=== PATIENT | female | born 2000 | race Caucasian/White ===

== ENCOUNTER → 2023-08-29 | Outpatient (CLI) | payer BC, SELFPAY ==
[2023-09-02 10:09] LABS: Chlamydia By Nucleic Acid AMP Negative (Negative); Gonococcus By Nucleic Acid AMP Negative (Negative)
== END | disposition home or self-care (01) ==
LOC: LABSPEC 12:16
PROVIDERS: Referring Provider Advanced Practice Midwife; Visit Provider Advanced Practice Midwife
DX: Z34.90 Encounter for supervision of normal pregnancy, unspecified, unspecified trimester (principal); Z3A.00 Weeks of gestation of pregnancy not specified
CPT/HCPCS: 87086; 87491; 87591

== ENCOUNTER → 2023-09-10 | Outpatient (CLI) | payer BC, SELFPAY ==
[2023-09-10 11:19] LABS: Absolute Lymphocyte Count 1.36 X10^3/uL (0.83-4.51); Absolute Neutrophil Count 5.8 X10^3/uL (2.0-7.7); Basophil# 0.03 X10^3/uL; Basophil% 0.4 % (0-1); Eosinophil# 0.15 X10^3/uL; Eosinophils% 1.9 % (0-5); Hematocrit 37.1 % (37-47); Hemoglobin 12.9 g/dL (12.0-15.0); Lymphocyte # 1.36 X10^3/ul (0.83-4.51); Lymphocyte % 17.2 % (19-41); Mean Corp Hgb Conc 34.8 g/dL (32-36); Mean Corpuscular Hgb 31.8 pg (27.0-32.0); Mean Corpuscular Volume 91.4 fL (81-99); Mean Platelet Vol. 10.4 fl (6.2-12.0); Monocyte# 0.54 X10^3/uL; Monocyte% 6.8 % (0-10); NRBC Flagged by Analyzer 0 % (0-5); Neutrophil # 5.81 X10^3/uL (2.7-7.7); Neutrophil % 73.3 % (47-70); Platelet Count 205 K/mm3 (150-450); RBC Distribution Width CV 12.7 % (11.6-14.6); Red Blood Count 4.06 M/mm3 (4.2-5.4); White Blood Count 7.9 K/mm3 (4.4-11.0)
[2023-09-10 12:34] LABS: HIV - WCH Non-Reactive (Nonreactive); Hepatitis B Surface Antigen Non-Reactive (Nonreactive); Hepatitis C Antibody Non-Reactive (Nonreactive); Rubella IgG Reactive (Nonreactive); Syphilis Antibodies Non-reactive
== END | disposition home or self-care (01) ==
LOC: PAVLAB 11:07
PROVIDERS: Referring Provider Advanced Practice Midwife; Visit Provider Advanced Practice Midwife
DX: Z34.90 Encounter for supervision of normal pregnancy, unspecified, unspecified trimester (principal); Z3A.00 Weeks of gestation of pregnancy not specified
CPT/HCPCS: 36415; 85025; 86703; 86762; 86780; 86803; 86850; 86900; 86901; 87340

== ENCOUNTER → 2024-01-16 | Outpatient (CLI) | payer BC, SELFPAY ==
[2024-01-16 13:33] LABS: Absolute Lymphocyte Count 1.45 X10^3/uL (0.83-4.51); Absolute Neutrophil Count 8.6 X10^3/uL (2.0-7.7); Basophil# 0.04 X10^3/uL; Basophil% 0.4 % (0-1); Eosinophil# 0.26 X10^3/uL; Eosinophils% 2.3 % (0-5); Hemoglobin 11.1 g/dL (12.0-15.0); Lymphocyte # 1.45 X10^3/ul (0.83-4.51); Mean Corp Hgb Conc 33.6 g/dL (32-36); Mean Corpuscular Hgb 31.6 pg (27.0-32.0); Monocyte% 6.3 % (0-10); NRBC Flagged by Analyzer 0 % (0-5); Neutrophil # 8.63 X10^3/uL (2.7-7.7); Neutrophil % 77.1 % (47-70); Platelet Count 218 K/mm3 (150-450); RBC Distribution Width CV 13.1 % (11.6-14.6); RBC Distribution Width SD 44.6 fl (35.1-43.9); Red Blood Count 3.51 M/mm3 (4.2-5.4); White Blood Count 11.2 K/mm3 (4.4-11.0)
[2024-01-16 13:50] LABS: Glucose Challenge Gest 1H 50g 76 mg/dL (70-140)
== END | disposition home or self-care (01) ==
LOC: LAB 13:09
PROVIDERS: Referring Provider Advanced Practice Midwife; Visit Provider Advanced Practice Midwife
DX: Z34.90 Encounter for supervision of normal pregnancy, unspecified, unspecified trimester (principal); Z3A.00 Weeks of gestation of pregnancy not specified
CPT/HCPCS: 36415; 82950; 85025

== ENCOUNTER → 2024-03-11 | Outpatient (CLI) | payer BC, SELFPAY | END | disposition home or self-care (01) | LOC: LABSPEC 12:00 | PROVIDERS: Referring Provider Obstetrics & Gynecology; Visit Provider Obstetrics & Gynecology | DX: Z34.00 Encounter for supervision of normal first pregnancy, unspecified trimester (principal); Z3A.00 Weeks of gestation of pregnancy not specified | CPT/HCPCS: 87081 ==

== ENCOUNTER → 2024-03-30 | Outpatient (CLI) | payer BC, SELFPAY ==
--- NOTE | 2024-03-30 07:42 | US_ITS ---
STUDY: SECOND AND THIRD TRIMESTER OBSTETRICAL ULTRASOUND REASON FOR EXAM: Female, 23 years old growth LMP: June 30, 2023. TECHNIQUE: Transabdominal TECHNICAL QUALITY: Adequate. PRIOR ULTRASOUND: None. FINDINGS: There is a single intrauterine fetus. The fetus is in a cephalic presentation. There is demonstrated cardiac activity with a heart rate of 135 bpm. There is a normal amniotic fluid volume. The largest amniotic fluid pocket measures 6 cm. The amniotic fluid index (KLEVER) is 14.65 cm. The placenta is anterior in location and is not low lying. There are Grade 1 placental changes. The cervix was not measured due to the head position. The adnexal regions are not visualized. BIOMETRY: BPD: 9.25 cm: 37 weeks, 4 days HC: 33.32 cm: 38 weeks, 0 days AC: 34.59 cm: 38 weeks, 3 days FL: 7.22 cm: 37 weeks, 0 days CI: 81% FL/BPD: 78% FL/HC: FL/AC: 21% HC/AC: 0.96 age by current US: 37 weeks, 6 days. FORD by current US: April 14, 2024. Estimated weight: 3395 grams, +/- 509 grams, 44 %. Age by LMP: 39 weeks, 1 days. FORD by LMP: April 05, 2024. US/OB Limited With Biometrics IMPRESSION: Single live intrauterine gestation with a mean gestational age of 37 weeks and 6 days. Electronically Signed: Kenan Jordan MD at 9:20 EDT ,
== END | disposition home or self-care (01) ==
PROVIDERS: Referring Provider Obstetrics & Gynecology; Visit Provider Obstetrics & Gynecology
DX: Z34.00 Encounter for supervision of normal first pregnancy, unspecified trimester (principal)
CPT/HCPCS: 76816

== ENCOUNTER 2024-04-06 19:47 | Inpatient (IN) | payer BC, SELFPAY ==
[2024-04-06] VITALS (34 sets, daily range): BP systolic 106–138; BP diastolic 57–80; PULSE 79–104; RESP 14–18; TEMP 36.4–36.7; O2SAT 85–100; BMI 34.4
[2024-04-06] MEDS: Lactated Ringers 1,000 ML 999 ML IV (20:15)
[2024-04-06 20:32] LABS: Absolute Lymphocyte Count 1.19 X10^3/uL (0.83-4.51); Absolute Neutrophil Count 16.1 X10^3/uL (2.0-7.7); Basophil# 0.05 X10^3/uL; Basophil% 0.3 % (0-1); Eosinophil# 0.05 X10^3/uL; Eosinophils% 0.3 % (0-5); Hematocrit 34.1 % (37-47); Hemoglobin 11.3 g/dL (12.0-15.0); Lymphocyte # 1.19 X10^3/ul (0.83-4.51); Lymphocyte % 6.4 % (19-41); Mean Corp Hgb Conc 33.1 g/dL (32-36); Mean Corpuscular Hgb 30.4 pg (27.0-32.0); Mean Corpuscular Volume 91.7 fL (81-99); Mean Platelet Vol. 11.9 fl (6.2-12.0); Monocyte# 1.02 X10^3/uL; Monocyte% 5.5 % (0-10); NRBC Flagged by Analyzer 0 % (0-5); Neutrophil # 16.08 X10^3/uL (2.7-7.7); Neutrophil % 86.6 % (47-70); Platelet Count 180 K/mm3 (150-450); RBC Distribution Width CV 12.5 % (11.6-14.6); Red Blood Count 3.72 M/mm3 (4.2-5.4); White Blood Count 18.6 K/mm3 (4.4-11.0)
[2024-04-06] MEDS: Ondansetron 4 MG/2 ML Vial IV (20:41)
[2024-04-06 21:03] LABS: Syphilis Antibodies Non-reactive
[2024-04-06] MEDS: Lactated Ringers 1,000 ML 200 ML IV (21:13)
[2024-04-06] MEDS: fentaNYL-bupivacaine (epidural) 100 ML BAG EPIDURAL (21:25)
[2024-04-06] MEDS: LACTATED RINGERS 500 ML 999 ML IV (22:12)
[2024-04-07] VITALS (50 sets, daily range): BP systolic 104–130; BP diastolic 52–78; PULSE 77–237; RESP 14–18; TEMP 36.1–36.8; O2SAT 88–100
[2024-04-07] MEDS: Oxytocin 15 Units/NS 250ml 15 UNITS/250 ML IV.SOLN 2 UNITS IV (00:47)
[2024-04-07] MEDS: fentaNYL-bupivacaine (epidural) 100 ML BAG EPIDURAL (01:05)
[2024-04-07] MEDS: Ondansetron 4 MG/2 ML Vial IV ×2 (01:36→05:57)
[2024-04-07] MEDS: Lactated Ringers 1,000 ML 200 ML IV (01:38)
[2024-04-07] MEDS: LACTATED RINGERS 500 ML 999 ML IV ×2 (01:44→02:53)
[2024-04-07] MEDS: 0.9% Normal Saline 100 ML IV.SOLN. INTRA-UTER (03:00)
--- NOTE | 2024-04-07 03:12 | HP.PCM.OB_ITS ---
HPI - General General Date of Admission: 04/06/24 HPI Narrative JOHN CHARLES, is a 23 y/o @ 40 weeks 1 day who presents to L&D with rupture of membranes (meconium fluid present) and active labor. Her has been uncomplicated and she is GBS negative. Maternal Data Information FORD Calculator Estimated Delivery Date Method Current WG Current Estimate 04/05/24 LMP (Certain) 40w 2d PFSH PFSH Home Medications ?Medication ?Instructions ?Recorded ?Last Taken ?Type multivit-min no.71-iron fum 28 1 cap PO DAILY 08/19/23 Unknown History mg-folate no.1 1 mg-dha 300 mg capsule (PNV-[place]) Allergy/AdvReac Type Severity Reaction Status Date / Time Penicillins Allergy Intermediate Rash Verified 04/06/24 20:31 Surgical History History of tonsillectomy [place] teeth extracted Social History adopted: No household members: spouse current occupational status: employed 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 @ [employer] current occupational exposures/hazards: No pets and animals: No history of recent travel: Yes ([facility]- June) out of country: Yes sexually active: Yes Smoking Status: Never smoker alcohol intake: never substance use type: does not use well-balanced diet: daily or most days caffeine: No eating out: rarely or never during the past year weight has: remained stable what type of physical activity do you participate in: none leah/oriental orthodox: Adventism seatbelt use: always do you feel safe at home: Yes additional social history: - Wm [employer] History 1 Elective abortions Hx Para 0 Spontaneous abortions Hx # Term Pregnancies Ectopic pregnancies Hx # Pregnancies Multiple births # of living children Visit Details Expected Delivery Route/Plan Labor Preferences- CB/BF classes: discussed labor support person: Wm labor intervention preferences: minimal pain management options preferred: open to epidural if needed cut cord/dad catch: yes : wants PP control planned: IUD PP discussed possible routes of delivery and associated risks: [] special requests: [] Plans Covid status: [] Flu vaccine: [] Tdap vaccine: done Rhogam: na LARC form signed: done Problem list reviewed and updated with the most current plan of care details and appropriate orders placed. Relevant counseling for the gestational age provided. Continue routine care and follow up unless otherwise noted in visit notes/problem list details OB Flowsheet Initial Weight: 187 lb Date -?-?-?-?-?-?-?-?-?-?-?-?- EGA Weight BP Urine Prot -?-?-?-?-?-?-?-?-?-?-?-?- Glucose FHR FuHt Pres Dilation -?-?-?-?-?-?-?-?-?-?-?-?- Effaced St Visit Note 08/29/23 -?-?-?-?-?-?-?-?-?-?-?-?- 8w 4d 187 lb 4 oz (+4 oz) 105/71 -?-?-?-?-?-?-?-?-?-?-?-?- 168 -?-?-?-?-?-?-?-?-?-?-?-?- KW- CRL cons wit h dates. discussed NIPT KW- CRL cons with dates. dis cussed NIPT-declines 09/26/23 -?-?-?-?-?-?-?-?-?-?-?-?- 12w 4d 183 lb 2 oz (-3 lb 14 oz) 111/75 Negative -?-?-?-?-?-?-?-?-?-?-?-?- Negative -?-?-?-?-?-?-?-?-?-?-?-?- KW- no vb/crampi ng. no concerns today. movement and FHR visualized on hand held US today 10/24/23 -?-?-?-?-?-?-?-?-?-?-?-?- 16w 4d 182 lb 4 oz (-4 lb 12 oz) 115/82 Negative -?-?-?-?-?-?-?-?-?-?-?-?- Negative 140 -?-?-?-?-?-?-?-?-?-?-?-?- KW-no vb/crampin g. having some headaches. recommended magnesium. US on 11/12. 11/21/23 -?-?-?-?-?-?-?-?--?-?-?-?- 20w 4d 187 lb 2 oz (+2 oz) 118/80 Negative -?-?-?-?-?-?-?-?-?-?-?-?- Negative 152 -?-?-?-?-?-?-?-?-?-?-?-?- JV- no lof, vagi nal bleeding, or cramping + flutters. Echo is scheduled for 12/12/23 12/19/23 -?-?-?-?-?-?-?-?-?-?-?-?- 24w 4d 191 lb 6 oz (+4 lb 6 oz) 115/73 Negative -?-?-?-?-?-?-?-?-?-?-?-?- Negative 148 24 -?-?-?-?-?-?-?-?-?-?-?-?- KW- no vb/lof/ct x. good fm. 01/16/24 -?-?-?-?-?-?-?-?-?-?-?-?- 28w 4d 191 lb 6 oz (+4 lb 6 oz) 123/77 Negative -?-?-?-?-?-?-?-?-?-?-?-?- Negative 154 28 -?-?-?-?-?-?-?-?-?-?--?-?- LC- no vb/ctx/lo f. good fm. LC- no vb/ctx/lof. good fm.p assed glucola. 01/30/24 -?-?-?-?-?-?-?-?-?-?-?-?- 30w 4d 200 lb (+13 lb) 109/73 Negative -?-?-?-?-?-?-?-?-?-?-?-?- Negative 145 30 -?-?-?-?-?-?-?-?-?-?-?-?- kw- no vb/lof/ct x. good fm. no concerns 02/13/24 -?-?-?-?-?-?-?-?-?-?-?-?- 32w 4d 201 lb (+14 lb) 111/71 Negative -?-?-?-?-?-?-?-?-?-?-?-?- Negative 132 32 -?-?-?-?-?-?-?-?-?-?--?-?- KW- no vb/lof/ct x. good fm. no concerns KW- no vb/lof/ctx. good fm. no concerns. LARC and tdap today 02/27/24 -?-?-?-?-?-?-?-?-?-?-?-?- 34w 4d 205 lb (+18 lb) 128/78 Negative -?-?-?-?-?-?-?-?-?-?-?-?- Negative 150 33 -?-?-?-?-?-?-?-?-?-?-?-?- SM- no vb lof go od fm no rgular ctx discussed l and d preferences 03/11/24 -?-?-?-?-?-?-?-?-?-?-?-?- 36w 3d 203 lb 2 oz (+16 lb 2 oz) 111/58 Negative -?-?-?-?-?-?-?-?-?-?-?-?- Negative 145 35 Cephalic 0 -?-?-?-?-?-?-?-?-?-?-?-?- JV- GBS collecte d. no complaints. vtx palpated on exam. 03/16/24 -?-?-?-?-?-?-?-?-?-?-?-?- 37w 1d 202 lb (+15 lb) 110/72 Negative -?-?-?-?-?-?-?-?-?-?-?-?- Negative 140 35 Cephalic 0 -?-?-?-?-?-?-?-?-?-?-?-?- JV- gbs was nega tive. no lof, vaginal bleeding, or dec fm. KLEVER 14. normal bedside growth paramaters of AC, HC, and FL. 03/24/24 -?-?-?-?-?-?-?-?-?-?-?-?- 38w 2d 206 lb 4 oz (+19 lb 4 oz) 128/85 Negative -?-?-?-?-?-?-?-?-?-?-?-?- Negative 140 36 Cephalic 1 -?-?-?-?-?-?-?-?-?-?-?-?- 20 SM- no v b lof good fm no regular ctx,formal growth US ordered 03/30/24 -?-?-?-?-?-?-?-?-?-?-?-?- 39w 1d 207 lb (+20 lb) 126/81 -?-?-?-?-?-?-?-?-?-?-?-?- 140 36 Cephalic 1 -?-?-?-?-?-?-?-?-?-?-?-?- Sm no vb lof goo d fm no regular ctx ROS Constitutional Constitutional: Denies change in weight, fatigue, fever(s), headache(s), poor appetite or weakness Eyes Eyes: Denies blurry vision, change in vision, seeing flashes or spots in vision ENT HEENT: Denies dizziness, headache(s), loss taste/smell or sore throat Cardiovascular Cardiovascular: Denies chest pain, dizziness, dyspnea, irregular heart rhythm, leg edema, palpitations, rapid heart rate or vomiting Respiratory/Chest Respiratory/Chest: Denies chest tightness, cough, dyspnea or breast pain Gastrointestinal Gastrointestinal: Denies abdominal pain, anorexia, constipation, cramping, diarrhea, hemorrhoids, vomiting or weight changes Genitourinary Genitourinary: Denies dysuria, flank pain, genital lesions, genital pain, urinary frequency or urinary urgency Musculoskeletal Musculoskeletal: Denies back pain, difficulty walking, joint pain, limited range of motion, muscle cramps or numbness Integumentary Integumentary: Denies lesions or unusual bruising Neurologic Neurologic: Denies abnormal movements, abnormal speech, dizziness, numbness, seizure-like activity or syncope Psychiatric Psychiatric: Denies anxiety, behavioral changes, change in appetite, change in libido, cognitive impairment, confusion, depression, difficulty concentrating, hallucinations or suicidal thoughts Endocrine Endocrinology: Denies excessive sweating, polydipsia or polyuria Hematologic/Lymphatic Hematologic/Lymphatic: Denies easy bleeding, easy bruising or lymphadenopathy Allergic/Immunologic Allergic/Immunologic: Denies itchy eyes, lip swelling, seasonal rhinorrhea, rhinitis, throat swelling, tongue swelling, eczemia, wheezing or asthma Vital Signs Vital Signs Vital Signs: 04/06/24 19:39 04/06/24 19:39 04/06/24 19:39 Temperature Temperature Source Pulse Rate 97 Respiratory Rate Blood Pressure 130/80 H BP Systolic 130 BP Diastolic 80 Pulse Ox 97 04/06/24 19:39 04/06/24 19:39 04/06/24 19:39 Temperature 98.0 F Temperature Source Temporal Pulse Rate Respiratory Rate 18 Blood Pressure BP Systolic BP Diastolic Pulse Ox 04/06/24 21:05 04/06/24 21:05 04/06/24 21:05 Temperature Temperature Source Temporal Pulse Rate 89 Respiratory Rate Blood Pressure BP Systolic BP Diastolic Pulse Ox 100 04/06/24 21:05 04/06/24 21:05 04/06/24 21:07 Temperature 97.6 F L Temperature Source Pulse Rate Respiratory Rate 16 Blood Pressure 124/72 H BP Systolic 124 BP Diastolic 72 Pulse Ox 04/06/24 21:07 04/06/24 21:10 04/06/24 21:10 Temperature Temperature Source Pulse Rate 91 86 Respiratory Rate Blood Pressure BP Systolic BP Diastolic Pulse Ox 100 04/06/24 21:15 04/06/24 21:15 04/06/24 21:16 Temperature Temperature Source Pulse Rate 84 90 Respiratory Rate Blood Pressure BP Systolic BP Diastolic Pulse Ox 100 04/06/24 21:16 04/06/24 21:17 04/06/24 21:17 Temperature Temperature Source Pulse Rate 89 Respiratory Rate Blood Pressure 134/67 H BP Systolic 134 BP Diastolic 67 Pulse Ox 85 04/06/24 21:20 04/06/24 21:20 04/06/24 21:20 Temperature Temperature Source Pulse Rate 88 Respiratory Rate 14 Blood Pressure BP Systolic BP Diastolic Pulse Ox 100 04/06/24 21:22 04/06/24 21:22 04/06/24 21:25 Temperature Temperature Source Pulse Rate 79 84 Respiratory Rate Blood Pressure 120/68 BP Systolic 120 BP Diastolic 68 Pulse Ox 04/06/24 21:25 04/06/24 21:25 04/06/24 21:27 Temperature Temperature Source Pulse Rate Respiratory Rate 16 Blood Pressure 126/75 H BP Systolic 126 BP Diastolic 75 Pulse Ox 100 04/06/24 21:27 04/06/24 21:30 04/06/24 21:31 Temperature Temperature Source Pulse Rate 92 93 Respiratory Rate 14 Blood Pressure BP Systolic BP Diastolic Pulse Ox 04/06/24 21:31 04/06/24 21:35 04/06/24 21:37 Temperature Temperature Source Pulse Rate Respiratory Rate 16 Blood Pressure 138/80 H BP Systolic 138 BP Diastolic 80 Pulse Ox 100 04/06/24 21:37 04/06/24 21:37 04/06/24 21:39 Temperature Temperature Source Pulse Rate 99 85 Respiratory Rate Blood Pressure BP Systolic BP Diastolic Pulse Ox 94 04/06/24 21:39 04/06/24 21:40 04/06/24 21:42 Temperature Temperature Source Pulse Rate 89 Respiratory Rate 14 Blood Pressure BP Systolic BP Diastolic Pulse Ox 92 04/06/24 21:42 04/06/24 21:43 04/06/24 21:43 Temperature Temperature Source Pulse Rate 80 Respiratory Rate Blood Pressure 109/57 L BP Systolic 109 BP Diastolic 57 Pulse Ox 99 04/06/24 21:45 04/06/24 21:47 04/06/24 21:47 Temperature Temperature Source Pulse Rate 83 Respiratory Rate 14 Blood Pressure 106/61 BP Systolic 106 BP Diastolic 61 Pulse Ox 04/06/24 21:47 04/06/24 21:47 04/06/24 21:50 Temperature Temperature Source Pulse Rate 82 Respiratory Rate 16 Blood Pressure BP Systolic BP Diastolic Pulse Ox 98 04/06/24 21:52 04/06/24 21:52 04/06/24 21:53 Temperature Temperature Source Pulse Rate 90 90 Respiratory Rate Blood Pressure BP Systolic BP Diastolic Pulse Ox 92 04/06/24 21:53 04/06/24 21:54 04/06/24 21:54 Temperature Temperature Source Pulse Rate 83 Respiratory Rate Blood Pressure 111/59 L BP Systolic 111 BP Diastolic 59 Pulse Ox 89 04/06/24 21:55 04/06/24 21:57 04/06/24 21:57 Temperature Temperature Source Pulse Rate 85 Respiratory Rate 14 Blood Pressure 121/65 H BP Systolic 121 BP Diastolic 65 Pulse Ox 04/06/24 21:57 04/06/24 22:00 04/06/24 22:01 Temperature Temperature Source Pulse Rate 87 Respiratory Rate 16 Blood Pressure BP Systolic BP Diastolic Pulse Ox 98 04/06/24 22:01 04/06/24 22:04 04/06/24 22:04 Temperature Temperature Source Pulse Rate 82 Respiratory Rate Blood Pressure 115/61 BP Systolic 115 BP Diastolic 61 Pulse Ox 98 04/06/24 22:11 04/06/24 22:11 04/06/24 22:12 Temperature Temperature Source Pulse Rate 81 Respiratory Rate Blood Pressure 121/63 H BP Systolic 121 BP Diastolic 63 Pulse Ox 97 04/06/24 22:12 04/06/24 23:11 04/06/24 23:11 Temperature Temperature Source Temporal Pulse Rate 104 H Respiratory Rate 16 Blood Pressure BP Systolic BP Diastolic Pulse Ox 04/06/24 23:11 04/06/24 23:12 04/06/24 23:12 Temperature 97.8 F Temperature Source Pulse Rate 102 H Respiratory Rate Blood Pressure 116/66 BP Systolic 116 BP Diastolic 66 Pulse Ox 04/07/24 01:34 04/07/24 01:34 04/07/24 01:34 Temperature Temperature Source Temporal Pulse Rate 93 Respiratory Rate Blood Pressure 116/78 BP Systolic 116 BP Diastolic 78 Pulse Ox 04/07/24 01:34 04/07/24 01:34 04/07/24 02:31 Temperature 97.0 F L Temperature Source Pulse Rate 98 Respiratory Rate 16 Blood Pressure BP Systolic BP Diastolic Pulse Ox 04/07/24 02:31 04/07/24 02:43 04/07/24 02:43 Temperature Temperature Source Temporal Pulse Rate Respiratory Rate 16 Blood Pressure BP Systolic BP Diastolic Pulse Ox 99 04/07/24 02:43 04/07/24 02:44 04/07/24 02:44 Temperature 98.1 F Temperature Source Pulse Rate 98 Respiratory Rate Blood Pressure 124/77 H BP Systolic 124 BP Diastolic 77 Pulse Ox 04/07/24 02:44 04/07/24 02:44 Temperature Temperature Source Pulse Rate 89 Respiratory Rate Blood Pressure BP Systolic BP Diastolic Pulse Ox 99 Weight Weight: 220 lb 0.341 oz Body Mass Index (BMI) 34.4 Physical Exam Const alert, oriented x3, no apparent distress and healthy appearing General Appearance: cooperative; Negative for anxious HEENT normocephalic Face and Sinus: normal facial exam Eyes EOMs intact bilaterally and no scleral icterus General Eye: normal appearance of both eyes Neck full ROM and supple Lymph Lymphatic: no lymphadenopathy noted Chest Chest: abnormal inspection of the chest Resp normal respiratory effort Effort and Inspection: able to speak in complete sentences Cardio regular rate GI soft to palpation and non-tender Inspection: gravid Palpation: soft; Negative for tender external exam normal Amniotic Fluid: ROM+plus Back/Spine no CVA tenderness Extremity normal to inspection, full ROM and no clubbing, cyanosis or edema General Extremity: Negative for calf tenderness or edema Skin Lesions: no lesions Rashes: no rashes Psych mental status grossly normal Labs Labs Labs: Blood Type O POSITIVE Antibody Screen NEGATIVE Hct 34.1 % (37-47) L Hgb 11.3 g/dL (12.0-15.0) L Obstetrics Ultrasound Syphilis Total Ab Non-reactive Rubella IgG Antibody Reactive (Nonreactive) Hep Bs Antigen Non-Reactive (Nonreactive) Hepatitis C Antibody Non-Reactive (Nonreactive) Chlamydia DNA ([place]) Negative (Negative) N.gonorrhoeae DNA ([place]) Negative (Negative) HIV 1&2 Antibody Non-Reactive (Nonreactive) Glucose 1 Hr 50 gm 76 mg/dL (70-140) Assessment & Plan (1) Family history of congenital heart defect: COMMENT: FOB- balloon vulvoplast at 2 days and 10 months for resolution. Echo at 22 weeks-normal (2) Family history of autism in sibling: COMMENT: FOB Brother (3) Supervision of normal first : COMMENT: PRR, , FORD 04/05/24, girl Wm, EFW at 44%, AC 54% (4) : QUALIFIERS: Weeks of gestation: 39 weeks Qualified Code(s): Z3A.39 - 39 weeks gestation of COMMENT: gbs neg. anatomy nl, declind ntd genetic & carrier testing PLAN: Plan Patient presents IAL, plan expectant management for , pitocin PRN Pain management: plans epidural. GBS negative. Management of any complications: none I have reviewed the [facility] and made any clinically relevant updates.
--- NOTE | 2024-04-07 03:14 | PN_ITS ---
Progress Note patient's nurse called with report of a prolonged deceleration. pitocin was on at 2 mu/min for augmentation when contractions spaced out after her epidural but that is now off and patient is in hands/knees when I entered the room. current tracing: FHT: Moderate variability reactive with moments of prolonged decelerations x 2. currently the heart rate is 150 with moderate variability. (patient in side lying release position) [place]: q 2 min Contractions 8.5/90/0 A/P: continue on right side with peanut ball for at least 30 minutes unless fetus does not tolerate this.
[2024-04-07] MEDS: Methylergonovine 0.2 MG/ML Ampul IM (04:59)
[2024-04-07] MEDS: Oxytocin 15 Units/NS 250ml 15 UNITS/250 ML IV.SOLN 83 UNITS IV (05:11)
--- NOTE | 2024-04-07 05:18 | EX.PCM.OBRPT ---
Assessment & Plan (1) Family history of congenital heart defect: COMMENT: FOB- balloon vulvoplast at 2 days and 10 months for resolution. Echo at 22 weeks-normal (2) Family history of autism in sibling: COMMENT: FOB Brother (3) Supervision of normal first : COMMENT: PRR, , FORD 04/05/24, girl Wm, EFW at 44%, AC 54% (4) : QUALIFIERS: Weeks of gestation: 39 weeks Qualified Code(s): Z3A.39 - 39 weeks gestation of COMMENT: gbs neg. anatomy nl, declind ntd genetic & carrier testing Maternal Data Information FORD Calculator Estimated Delivery Date Method Current WG Current Estimate 04/05/24 LMP (Certain) 40w 2d Final FORD: 04/05/24 Gestational age: 40 weeks 2 days Vaginal Delivery Operative Information Date of Procedure: 04/07/24 Pre-Operative Diagnosis: 23 y/o @ 40 weeks 2 days, SROM, meconium fluid Post-Operative Diagnosis: 23 y/o @ 40 weeks 2 days, SROM, meconium fluid Surgery / Procedure Performed: Spontaneous Vaginal Delivery Type of Anesthesia: Epidural Drain: Virgen to straight drain Estimated Blood Loss: 500cc Time of Delivery: 04:50 Findings Description of Procedure: Patient began pushing and delivered the head in the PETRA presentation. The head was delivered atraumatically. The anterior and posterior shoulders delivered without complication followed by the rest of the infant and the was placed on the maternal abdomen. Delayed cord clamping was employed for approximately 60 seconds. Cord was clamped and cut and gentle traction was applied to the cord and the placenta delivered spontaneously immediately following it was noted to be intact with three-vessel cord. The perineum and vagina were inspected and noted to have a periurethral and 1st degree perineal laceration with slight evulsion of the tissue of the perineum. Both lacerations were repaired using a 3-0 vicryl and a 2-0 vicryl. The patient was noted to have some brisk bleeding during the repair and a trail of membranes was noted in the uterus. This was removed manually, the pitocin was increased to 999/hr and she was given methergine IM. This helps slow the bleeding to a slight trickle. EBL was 500 cc. Patient and tolerated delivery well. baby girl name is Liz Presentation: Vertex Amniotic Membrane Rupture Type: Spontaneous Amniotic Fluid Description: Clear Placental Delivery Description: Spontaneous Placenta Disposition: [facility] Cord Vessel Description: 3 Vessels Cord Entanglement: None Infant A Gender: Female (1 minute): 8 (5 minute): 9 Delayed Cord Clamping: Yes Post Vaginal Delivery Medications Given After Delivery: IV Pitocin Episiotomy Description: None Laceration: None Complication Complications: None Multi Select Codes Urinary/Genital Urinary/Genital CPT Codes: 86095 Vaginal Delivery [facility]
--- NOTE | 2024-04-07 05:23 | DCINST_ITS ---
Discharge Instructions Diet Discharge Diet: No restrictions Activity Discharge Activity: Return to Normal Activity, May Not Drive (while taking narcotic pain medications.) and May Shower May resume sexual activity in: 4-6 weeks Dressing / Incision Call your doctor if your incision/area has: Continuous Slow Oozing, Sudden Increased Bleeding, Increased Pain/ Swelling, Increased Redness and Foul Smelling Discharge Follow Up Care Please Follow Up With: Loni Penn, When: Call [phone] to make an appointment with your doctor in 6 weeks. If you had elevated blood pressure or 4th degree laceration, you will need to be seen in 2 weeks. Test Results: Test results from this visit will be discussed in further detail at your follow- up appointment, if applicable. Discharge Plan Admission Admit Date/Time: 04/06/24 19:47 Primary Reason for Your Visit: vaginal delivery Attending Provider: Loni Penn Primary Care Provider: Care Physician,Lisandra Primary Discharge Orders/Prescriptions Prescriptions: No Action PNV-[place] 28-1-300 mg capsule 1 cap PO DAILY Referrals / Follow Up: Care Physician,No Primary [Primary Care Provider] - Disposition Disposition (needs filled in before D/C Order can be placed): Home, Self Care
[2024-04-07] MEDS: Benzocaine/Lanolin/Aloe Vera 1 SPRAY EACH TOPICAL (05:54)
[2024-04-07] MEDS: Ibuprofen 600 MG Tablet PO ×2 (05:54→21:23)
[2024-04-07] MEDS: 0.9% Saline Lock 10 ML Syringe IV (08:36)
[2024-04-07] MEDS: Acetaminophen 500 MG Tablet 1000 MG PO (14:35)
[2024-04-08 00:05] VITALS: BP 131/72; PULSE 91; RESP 16; TEMP 36.7; O2SAT 97
[2024-04-08 04:30] VITALS: BP 104/68; PULSE 86; RESP 16; TEMP 36.7; O2SAT 98
--- NOTE | 2024-04-08 08:35 | PN.OBGYN_ITS ---
Subjective Subjective The patient is awake and sitting up in bed. She denies SOB, chest pain or heavy vaginal bleeding. She is requesting to go home today. Objective Data Objective Data Vital Signs: Vital Signs Temp Pulse Resp BP Pulse Ox O2 Del Method 98.1 F 86 16 104/68 98 Room Air 04/08/24 04:30 04/08/24 04:30 04/08/24 04:30 04/08/24 04:30 04/08/24 04:30 04/08/24 04:30 Oxygen Delivery Method Room Air Weight: 220 lb 0.341 oz Body Mass Index (BMI) 34.4 Intake & Output: Intake and Output for Last 24 Hours 04/06/24 04/07/24 04/08/24 23:59 23:59 23:59 Intake Total 1696.67 / 1696.67 2536.66 / 2536.66 Output Total 500 / 500 2500 / 2500 Balance 1196.67 / 1196.67 36.66 / 36.66 Lab / Micro Data 04/06/24 20:15 ROS Constitutional Constitutional: Denies chills, fatigue, fever(s), poor appetite or weakness Eyes Eyes: Denies blurry vision, change in vision, seeing flashes or spots in vision ENT HEENT: Denies dizziness, headache(s), loss taste/smell or sore throat Cardiovascular Cardiovascular: Denies chest pain, dizziness, dyspnea, irregular heart rhythm, palpitations or rapid heart rate Respiratory/Chest Respiratory/Chest: Denies chest tightness, cough, dyspnea or breast pain Gastrointestinal Gastrointestinal: Denies abdominal pain, constipation or vomiting Genitourinary Genitourinary: Denies dysuria or flank pain Musculoskeletal Musculoskeletal: Denies difficulty walking, joint pain, limited range of motion or numbness Neurologic Neurologic: Denies abnormal movements, abnormal speech, dizziness, numbness, seizure-like activity or syncope Psychiatric Psychiatric: Denies anxiety, behavioral changes, change in appetite, confusion, depression or suicidal thoughts Physical Exam Const alert, oriented x3 and no apparent distress General Appearance: cooperative and comfortable Resp normal respiratory effort Cardio regular rate GI normal to inspection, nondistended, normoactive bowel sounds GI Narrative: uterus is firm below umbilicus Palpation: soft Back/Spine no CVA tenderness and thoraco-lumbar ROM normal Extremity normal to inspection, no clubbing, cyanosis or edema, no calf tenderness and no pedal edema Psych mental status grossly normal, thought process normal, cooperative, affect normal, speech normal, activity/motor behavior normal, denies homicidal ideation and denies suicidal ideation Assessment & Plan (1) Family history of congenital heart defect: COMMENT: FOB- balloon vulvoplast at 2 days and 10 months for resolution. Echo at 22 weeks-normal (2) Family history of autism in sibling: COMMENT: FOB Brother (3) Supervision of normal first : COMMENT: PRR, , FORD 04/05/24, girl Wm, EFW at 44%, AC 54% (4) : QUALIFIERS: Weeks of gestation: 39 weeks Qualified Code(s): Z 3A.39 - 39 weeks gestation of COMMENT: gbs neg. anatomy nl, declind ntd genetic & carrier testing (5) Status post vaginal delivery: PLAN: Plan s/p PPD # 1 1. routine post delivery care 2. breast feeding- support given 3. rh positive 4. rubella immune 5. plan for dc to home this afternoon.
[2024-04-08] MEDS: Acetaminophen 500 MG Tablet 1000 MG PO (09:53)
[2024-04-08 09:56] VITALS: BP 110/68; PULSE 100; RESP 17; TEMP 36.9; O2SAT 98
== END 2024-04-08 11:50 | disposition home or self-care (01) | DRG 807 ==
LOC: WPOUT 19:47 → WP 19:48
PROVIDERS: Admitting Provider Obstetrics & Gynecology; Referring Provider Obstetrics & Gynecology; Visit Provider Obstetrics & Gynecology
DX: O48.0 Post-term pregnancy (principal); Z37.0 Single live birth; O70.0 First degree perineal laceration during delivery; O77.0 Labor and delivery complicated by meconium in amniotic fluid; O71.82 Other specified trauma to perineum and vulva; O76 Abnormality in fetal heart rate and rhythm complicating labor and delivery; Z3A.40 40 weeks gestation of pregnancy
CPT/HCPCS: 59025; 59050; 85025; 86780; 86850; 86900; 86901; 99221; J7120; A4216; G0378; J2405

== ENCOUNTER → 2024-04-12 | Outpatient (CLI) | payer BC, SELFPAY | END | disposition home or self-care (01) | LOC: LABSPEC 14:34 | PROVIDERS: Referring Provider Nurse Practitioner Women's Health; Visit Provider Nurse Practitioner Women's Health | DX: O70.9 Perineal laceration during delivery, unspecified (principal); Z3A.00 Weeks of gestation of pregnancy not specified | CPT/HCPCS: 87070; 87075; 87077; 87186; 87205 ==

== ENCOUNTER → 2024-05-17 | Outpatient (CLI) | payer BC, SELFPAY ==
[2024-05-21 14:34] LABS: HPV Reflexed? NOT INDICATED
== END | disposition home or self-care (01) ==
LOC: LABSPEC 14:35
PROVIDERS: Referring Provider Obstetrics & Gynecology; Visit Provider Obstetrics & Gynecology
DX: Z12.4 Encounter for screening for malignant neoplasm of cervix (principal)
CPT/HCPCS: 88175; G0145

== ENCOUNTER → 2025-06-24 | Outpatient (CLI) | payer BC, SELFPAY ==
--- OUTSIDE RECORDS SUMMARY | 2025-06-24 16:08 | XMS RPT_ITS | CCD ---
Author Organization [facility] Care Team Providers Care Agriculture Research Director Name Role Phone NO, PHYSICIAN Primary Care Unavailable MICHAEL SMITH Attending Unavail able NO, PHYSICIAN Primary Care Unavailable SYSTEM, PROVIDER NOT IN Admitting Unavaila ble NONE, NONE Primary Care Unavailable NHI PALENCIA DO Attending Unavailable PALENCIANHI Irene DO Consulting Unavailable PALENCIANHI Irene DO Admitting Unavailable NONE, NONE Consulting Unavailable Care Physician, No Primary Primary Care Provider Unavailable Care Physician, No Primary Referring Provider Un available EDWARD Gaytan Attending Provider LONI DOTY Referring Unavailab LONI Sagastume Primary Care Unavailab LUBNA Da Silva Attending Unavailable COURTNEY GAYTAN Referring Unavailable LONI DOTY Primary Care Unavailab LUBNA Da Silva Attending Unavailable Care Physician, No Primary Primary Care Provider Unavailable Care Physician, No Primary Referring Provider Un available EDWARD Gaytan Attending Provider Dr. Loni Penn Attending Provider EDWARD Zepeda Attending Provider Care Physician, No Primary Primary Care Provider Unavailable Care Physician, No Primary Referring Provider Un available Dr. Loni Penn DO Attending Provider Loni Penn Attending Unavailabl e Care Physician, No Primary Referring Unava ilable Care Physician, No Primary Primary Care Unava ilable Care Physician, No Primary Primary Care Unava ilable Loni Penn Attending Unavailabl e Care Physician, No Primary Referring Unava ilable Allergies Allergy Classification Reported Allergen(s) Allergy Type Date of Onset Reaction(s) Facility (3 sources) Penicillins Allergy to substance 08-29-2023 [facility] Comment on above: (1 source) Penicillins Drug allergy (disorder) 06-10-2025 [facility] Repository Medications Current Medications Medication Drug Class(es) Dates Sig (Normalized) Sig (Original) [place] (Nk) (1 source) Start: 02-08-2025 [place] (Nk) A ctive February 08, 2025 12:00am Completed/Discontinued Medications Medication Drug Class(es) Dates Sig (Normalized) Sig (Original) ampicillin 500 mg oral capsule (1 source) Penicillin-class Antibacterial Start: 04-19-2024 End: 04-26-2024 take 1 capsule by mouth every eight hours Ampicillin 500 mg capsule Discontinued 500 mg PO Q8H 11 04April 19, 2024 12:00am April 25, 2024 12:00am April 26, 2024 12:04am ibuprofen 800 mg oral tablet (1 source) Nonsteroidal Anti-inflammatory Drug Start: 04-07-2024 End: 05-17-2024 take 1 tablet by mouth every eight hours as needed for pain Ibuprofen 800 mg tablet Discontinued 800 mg PO Q8H as needed for pain April 07, 2024 12:00am May 17, 2024 11:21am levonorgestrel 0.444457 mg/hr intrauterine system (1 source) Progestin, Progestin-containin g Intrauterine Device Start: 06-15-2024 End: 02-08-2025 Levonorgestrel (Meera) 14 mcg/24 hr (3 yrs) 13.5 mg intrauterine device Discontinued 1 NMA INTRA-UTER ONCE June 15, 2024 12:00am February 08, 2025 3:07pm as a single dose metroNIDAZOLE 500 mg oral tablet (1 source) Nitroimidazole Antimicrobial Start: 04-19-2024 End: 04-26-2024 take 1 tablet by mouth twice daily Metronidazole 500 mg tablet Discontinued 500 mg PO TWICE A DAY 14 April 19, 2024 12:00am April 25, 2024 12:00am April 26, 2024 12:04am Mv-Mins 98-Usdh-Wyrvg No.1-Dha (Pnv-[place]) 28-1-300 mg capsule (3 sources) Start: 08-19-2023 End: 05-17-2024 Mv-Mins 54-Dxga-Oincv No.1-Dha (Pnv-[place]) 28-1-300 mg capsule Discontinued 1 NMA PO DAILY August 19, 2023 1:00am May 17, 2024 11:21am Start: 08-19-2023 take 1 capsule by mouth once M v-Mins 50-Bfwd-Wbdsn No.1-Dha (Pnv-[place]) 28-1-300 mg capsule Active CAP PO August 19, 2023 1:00am Start: 08-19-2023 take 1 capsule by mouth once M v-Mins 51-Kllt-Mspuh No.1-Dha (Pnv-[place]) 28-1-300 mg capsule Active CAP PO August 19, 2023 12:00am Problems Active Problems Problem Classification Problem Date Documented Da te Episodic/Chronic Other and delivery including normal (19 sources) Normal ; Translations: [Encounter for supervision of normal first , unspecified trimester] Onset: 06-17-2025 08-19-2023 [facility] Comment on above: PRR, , FORD , girl Wm, EFW at 44%, AC 54% gbs neg. anatomy nl, declind ntd genetic & carrier testing Residual codes; unclassified (3 sources) Family history of autism in sibling; Translations: [Family history of other mental and behavioral disorders] 08-19-2023 [facility] Comment on above: FOB Brother Residual codes; unclassified (3 sources) FH: Congenital heart disease; Translations: [Family history of other congenital malformations, deformations and chromosomal abnormalities] 08-29-2023 Ep[facility] Comment on above: FOB- balloon vulvopl ast at 2 days and 10 months for resolution. Echo at 22 weeks-normal Residual codes; unclassified (6 sources) Family history of other mental and behavioral disorders; Translations: [Family history of psychiatric condition] 08-29-2023 Episodic Residual codes; unclassified (6 sources) Family history of other congenital malformations, deformations and chromosomal abnormalities; Translations: [Family history of congenital anomalies] 08-29-2023 Episodic Residual codes; unclassified (1 source) History of past delivery; Translations: [Personal history of other genital system and obstetric disorders] 06-15-2024 Episodic Past or Other Problems Problem Classification Problem Date Documented Date Episodic/Chronic Contraceptive and procreative management (1 source) Encounter for insertion of intrauterine contraceptive device; Translations: [Encounter for insertion of intrauterine contraceptive device] Onset: 02-08-2025 Episodic Results Test Name Value Interpretation Reference Range 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 Loni Wayne DO Age/Sex: 24/F Location: [facility] [place] Status: Signed Intake Vital Signs 06/15/24 11:02 02/08/25 15:03 02/08/25 15:05 Height 5 ft 7 in 5 ft 7 in 5 ft 7 in Weight: 183 lb 4 oz BMI 28.7 BP 126/85 H Intake Visit Reasons: Meera Removal Eyeglass Cutter Required: No Is patient in pain?: No Allergies Penicillins Allergy (Intermediate, Verified 02/08/25 15:02) Rash Medications ???Medication ???Instructions ???Recorded ???Confirmed ???Type NK 02/08/25 02/08/25 History Post menopausal: No Patient : No : [facility] History Status post vaginal delivery History of tonsillectomy [place] teeth extracted Social History adopted: No household members: spouse number of children: 1 current occupational status: employed 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 @ [employer] current occupational exposures/hazards: No pets and animals: No history of recent travel: Yes (- June) out of country: Yes sexually active: Yes Smoking Status: Never smoker alcohol intake: never substance use type: does not use well-balanced diet: daily or most days caffeine: No eating out: rarely or never during the past year weight has: remained stable what type of physical activity do you participate in: none leah/uatsdin: Uatsdin seatbelt use: always do you feel safe at home: Yes 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 Date Name GA/Weeks Outcome Route Bth Weight Infant Gen Labor [facility] 04/07/24 Liz 40 live - full term 6lbs 13oz Female [facility] Va nde Velde Wm ROS Const ROS Unobtainable: All systems reviewed are unremarkable except as noted in H Resp Resp: Reports system reviewed and no additional complaints, except as documented; Denies cough GI GI: Reports as per HPI Psych Psych: Reports system reviewed and no additional complaints, except as documented Exam Const General: cooperative, healthy appearing, comfortable and no acute distress Resp Effort Inspection: normal respiratory effort General: bimanual renal exam normal bilaterally External Female Exam: normal appearance of the urethra Urethra: normal appearance of the urethra Speculum Exam - Vagina: normal appearance of the vagina Speculum Exam - Cervix: normal appearance of the cervix Bimanual Exam- Adnexa, other: normal adnexae and normal Pelvic Support: normal Skin General: no rashes or lesions noted Psych Appearance: grossly normal Speech and Movement: speech and movement normal Coding Level of Care Code Attention Lighter Diagnoses Encounter for IUD removal Z30.432 Assessment and Plan Assessment and Plan (1) Encounter for IUD removal: Status: Acute Plan: IUD removed recommend PNV call when get pos preg test. Orders: Orders IUD Removal Today Z30.432 - Encounter for removal of intrauterine contraceptive device 02/08/25 1520 Date Loni Ayala Signature: Date (if applicable) CC: Normal [facility] Absolute lymphocyte countOrd ered By: Courtney Gaytan on 01-16-2024 Lymphocytes Auto (Unsp spec) [#/Vol] 1.45 10*3/uL 0.83-4.51 [facility] Automated lymphocyte count a s percentage of total leukocytesOrdered By: Courtney Gaytan on 01-16-2024 Lymphocytes/100 WBC Auto (Unsp spec) 13.0 % 19-41 [facility] Basophil percentageOrdered B y: Courtney Gaytan on 01-16-2024 Basophils/100 WBC (Bld) 0.4 % 0-1 [facility] Eosinophils/100 WBC (Bld) 2.3 % 0-5 [facility] Hemoglobin (Bld) [Mass/Vol] 11.1 g/dL 12.0-15.0 [facility] Monocytes/100 WBC (Bld) 6.3 % 0-10 [facility] Neutrophils (Bld) [#/Vol] 8.6 10*3/uL 2.0-7.7 [facility] Neutrophils/100 WBC (Bld) 77.1 % 47-70 [facility] WBC (Bld) [#/Vol] 11.2 10*3/uL 4.4-11.0 [facility] Determination of erythrocyte mean corpuscular volume (MCV)Ordered By: Courtney Gaytan on 01-16-2024 MCV (RBC) [Entitic vol] 94.0 fL 81-99 [facility] Erythrocyte distribution wid th ratioOrdered By: Courtney Gaytan on 01-16-2024 Erythrocyte distribution width (RBC) [Ratio] 13.1 % 11.6-14.6 [facility] Erythrocyte distribution wid th standard deviationOrdered By: Courtney Gaytan on 01-16-2024 Erythrocyte distribution width (RBC) [Entitic vol] 44.6 fL 35.1-43.9 [facility] Gestational diabetes screen 1-hour screen with 50g oral glucose loadOrdered By: Courtney Gaytan on 01-16-2024 Glucose 1 Hr post 50 g glucose PO [Mass/Vol] 76 mg/dL 70-140 [facility] Hematocrit Auto (Bld) [Volum e fraction]Ordered By: Courtney Gaytan on 01-16-2024 Hematocrit (Bld) [Volume fraction] 33.0 % 37-47 [facility] Immature granulocytes/100 WB C Auto (Bld)Ordered By: Courtney Gaytan on 01-16-2024 Immature granulocytes/100 WBC (Bld) 0.900 % 0.0-0.9 [facility] Comment on above: IG% - Immature Granu locytes (promyelocytes, myelocytes and metamyelocytes) > 1% indicates that a LEFT SHIFT is Present. Laboratory - Hematology and Cell countsOrdered By: Courtney Gaytan on 01-16-2024 MCH (RBC) [Entitic mass] 31.6 pg 27.0-32.0 [facility] MCHC (RBC) [Mass/Vol] 33.6 g/dL 32-36 [facility] Nucleated RBC/100 WBC (Bld) [Ratio] 0 % 0-5 [facility] Platelet mean volume (Bld) [Entitic vol] 11.0 fL 6.2-12.0 [facility] Platelets (Bld) [#/Vol] 218 10*3/uL 150-450 [facility] RBC Auto (Bld) [#/Vol]Ordere d By: Courtney Gaytan on 01-16-2024 RBC (Bld) [#/Vol] 3.51 10*6/uL 4.2-5.4 [facility] Laboratory - Chemistry and C hemistry - challengeon 12-19-2023 Glucose Ql (U) Negative [facility] Laboratory - Urinalysison Protein Ql (U) Negative [facility] Laboratory - Chemistry and C hemistry - challengeon 11-21-2023 Glucose Ql (U) Negative [facility] Laboratory - Urinalysison Protein Ql (U) Negative [facility] Laboratory - Chemistry and C hemistry - challengeon 10-24-2023 Glucose Ql (U) Negative [facility] Laboratory - Urinalysison Protein Ql (U) Negative [facility] Laboratory - Chemistry and C hemistry - challengeon 09-26-2023 Glucose Ql (U) Negative [facility] Laboratory - Urinalysison Protein Ql (U) Negative [facility] Chlamydia trachomatis rRNA d etection by probe and target amplification methodOrdered By: Courtney Gaytan on 08-29-2023 C. trachomatis rRNA VALENCIA+probe Ql (Unsp spec) Negative Negative [facility] Culture, urineOrdered By: Deshawn Gaytan on 08-29-2023 Bacteria identified Cx Nom (U) Culture exhibits no growth. [facility] Laboratory - Microbiology an d Antimicrobial susceptibilityOrdered By: Courtney Gaytan on 08-29-2023 N. gonorrhoeae DNA VALENCIA+probe Ql (Unsp spec) Negative Negative [facility] Comment on above: Performed at: =[id number] [place] [id number] Director: Ann Bunch MD, Phone: [phone] THIN PREP with HPV REFLEX C Uon 09-17-2022 . Comment Normal [facility] Comment on above: Result Comment: The HPV DNA reflex criteria were not met with this specimen result therefore, no HPV testing was performed. . Performed at: [facility] Performed By: #### T PHRA #### Performed for [place] [address] [id number] . Normal [facility] Comment on above: Result Comment: Perf ormed at: [facility] Performed By: #### T PHRA #### Performed for [place] [address] Loftsman/Woman Cyto stain Nom (Cvx/Vag) [ID] Comment Normal [facility] Comment on above: Result Comment: Lebron Rosa, Manager [employer] (ASCP) Performed at: [facility] Performed By: #### T PHRA #### Performed for [place] [address] Cytology report Cyto stain Doc (Cvx/Vag) Comment Normal [facility] Comment on above: Result Comment: NEGA TIVE FOR INTRAEPITHELIAL LESION OR MALIGNANCY. Performed at: [facility] Performed By: #### T PHRA #### Performed for [place] [address] Cytology report Cyto stain.thin prep Doc (Cvx/Vag) Comment Normal [facility] Comment on above: Result Comment: This liquid based ThinPrep(R) pap test was screened with the use of an image guided system. Performed at: [facility] Performed By: #### T PHRA #### Performed for [place] [address] Note: Comment Normal [facility] Comment on above: Result Comment: The Pap smear is a screening test designed to aid in the detection of premalignant and malignant conditions of the uterine cervix. It is not a diagnostic procedure and should not be used as the sole means of detecting cervical cancer. Both false-positive and false-negative reports do occur. . Performed at: [facility] Performed By: #### T PHRA #### Performed for [facility] [address], [place] [address] Statement of adequacy Cyto stain (Cvx/Vag) [Interp] Comment Normal [facility] Comment on above: Result Comment: Sati sfactory for evaluation. No endocervical component is identified. Performed at: [facility] Performed By: #### T PHRA #### Performed for [address] [address] Vital Signs Date Time Vital Sign Value Performing Clinician Rinku betancourt 02-08-2025 15:05-0400 Body height 170.18 cm No Primary Care Physician [facility] 02-08-2025 15:03-0400 Body mass index (BMI) [Ratio] 28.7 kg/m2 No Primary Care Physician [facility] 02-08-2025 15:03-0400 Body weight 83.12 kg No Primary Care Physician [facility] 02-08-2025 15:03-0400 Diastolic blood pressure 85 mm[Hg] No Primary Care Physician [facility] 02-08-2025 15:03-0400 Systolic blood pressure 126 mm[Hg] No Primary Care Physician [facility] 01-16-2024 13:58-0400 Body height 170.18 cm No Primary Care Physician [facility] 01-16-2024 13:58-0400 Body mass index (BMI) [Ratio] 29.9 kg/m2 No Primary Care Physician [facility] 01-16-2024 13:58-0400 Body weight 86.8 kg No Primary Care Physician [facility] 01-16-2024 13:58-0400 Diastolic blood pressure 77 mm[Hg] No Primary Care Physician [facility] 01-16-2024 13:58-0400 Systolic blood pressure 123 mm[Hg] No Primary Care Physician [facility] 12-19-2023 13:15-0400 Body mass index (BMI) [Ratio] 29.9 kg/m2 No Primary Care Physician [facility] 12-19-2023 13:15-0400 Body weight 86.8 kg No Primary Care Physician [facility] 12-19-2023 13:15-0400 Diastolic blood pressure 73 mm[Hg] No Primary Care Physician [facility] 12-19-2023 13:15-0400 Systolic blood pressure 115 mm[Hg] No Primary Care Physician [facility] 11-21-2023 13:06-0500 Body mass index (BMI) [Ratio] 29.2 kg/m2 No Primary Care Physician [facility] 11-21-2023 13:06-0500 Body weight 84.87 kg No Primary Care Physician [facility] 11-21-2023 13:06-0500 Diastolic blood pressure 80 mm[Hg] No Primary Care Physician [facility] 11-21-2023 13:06-0500 Systolic blood pressure 118 mm[Hg] No Primary Care Physician [facility] 10-24-2023 11:43-0500 Body mass index (BMI) [Ratio] 28.5 kg/m2 No Primary Care Physician [facility] 10-24-2023 11:43-0500 Body weight 82.66 kg No Primary Care Physician [facility] 10-24-2023 11:43-0500 Diastolic blood pressure 82 mm[Hg] No Primary Care Physician [facility] 10-24-2023 11:43-0500 Systolic blood pressure 115 mm[Hg] No Primary Care Physician [facility] 09-26-2023 13:08-0500 Body mass index (BMI) [Ratio] 28.6 kg/m2 No Primary Care Physician [facility] 09-26-2023 13:08-0500 Body weight 83.06 kg No Primary Care Physician [facility] 09-26-2023 13:08-0500 Diastolic blood pressure 75 mm[Hg] No Primary Care Physician [facility] 09-26-2023 13:08-0500 Systolic blood pressure 111 mm[Hg] No Primary Care Physician [facility] 08-29-2023 11:31-0500 Body height 170.18 cm No Primary Care Physician [facility] 08-29-2023 11:31-0500 Body mass index (BMI) [Ratio] 29.3 kg/m2 No Primary Care Physician [facility] 08-29-2023 11:31-0500 Body weight 84.93 kg No Primary Care Physician [facility] 08-29-2023 11:31-0500 Diastolic blood pressure 71 mm[Hg] No Primary Care Physician [facility] 08-29-2023 11:31-0500 Systolic blood pressure 105 mm[Hg] No Primary Care Physician [facility] Encounters Encounter Date Encounter Type Care Provider Facility Start: 06-24-2025 ambulatory No Primary Car e Physician Facility:[facility] Start: 02-08-2025 End: 02-08-[address] Loni Penn DO -[facility] Work Phone: Start: 02-08-2025 End: 02-08-2025 ambulatory No Primary Care Physician [facility] Work Phone: Start: 01-16-2024 End: 01-16-2024 ambulatory No Primary Care Physician [facility] Work Phone: Start: 01-16-2024 End: 01-16-2024 Patient encounter procedure No Primary Care Physician [facility] Work Phone: Start: 12-19-2023 End: 12-19-2023 Patient encounter procedure No Primary Care Physician [facility] Work Phone: Start: 12-12-2023 End: 12-12-2023 ambulatory LONI DOTY [facility] Start: 11-21-2023 End: 11-21-2023 Patient encounter procedure No Primary Care Physician [facility] Work Phone: Start: 11-12-2023 End: 11-12-2023 ambulatory COURTNEY GAYTAN [facility] Start: 10-24-2023 End: 10-24-2023 Patient encounter procedure No Primary Care Physician [facility] Work Phone: Start: 09-26-2023 End: 09-26-2023 Patient encounter procedure No Primary Care Physician [facility] Work Phone: Start: 08-29-2023 End: 08-29-2023 ambulatory No Primary Care Physician [facility] Work Phone: Start: 08-29-2023 End: 08-29-2023 Patient encounter procedure No Primary Care Physician [facility] Work Phone: Start: 08-29-2023 End: 08-29-2023 Patient encounter procedure No Primary Care Physician [facility] Work Phone: Start: 09-09-2022 Encounter for gynecological examination (general) (routine) without abnormal findings NHI M SLIME DIETRICH [facility] Start: 09-05-2022 End: 09-06-2022 ambulatory NONE NONE Facility:[facility] Start: 09-05-2022 End: 09-06-2022 Encounter for gynecological examination (general) (routine) without abnormal findings NONE NONE Facility:[facility] Start: 10-31-2020 End: 11-04-2020 Patient encounter procedure PHYSICIAN NO [facility] Procedures Date Procedure Procedure Detail Performing Clinician Start: 08-29-2023 Urine culture No Primar y Care Physician Plan of Treatment Date Care Activity Detail Author CBC W Auto Differential panel - Blood [facility] Hepatitis B surface antigen measurement [facility] Hepatitis C antibody measurement [facility] HIV 1+2 Ab+HIV1 p24 Ag [Presence] in Serum or Plasma by Immunoassay [facility] Rubella IgG measurement [facility] Treponema sp Ab [Presence] in Serum [facility] [place] Immunizations Immunization Date Immunization Notes Care Provider Fa cility 02-13-2024 tetanus toxoid, redu charles diphtheria toxoid, and acellular pertussis vaccine, adsorbed No Primary Care Physician [facility] Payers Date Payer Category Payer Self-pay 2024 Unknown [id number] 2000 Unknown [id number] [id number] 2000 Unknown [id number] 2000 Unknown [id number] [id number]. [id number] Unknown [id number] [id number] Unknown [id number] 2.16.8 [id number] Social History Date Type Detail Facility Start: 08-29-2023 End: 12-19-2023 Tobacco smoking status TXIS Unknown if ever smoked [facility] Start: 2000 Sex Assigned At Female [facility] Start: 05-17-2024 Tobacco smoking stat us TXIS Never smoked tobacco (finding) [facility] Evaluation note Note Date & Type Note Facility Evaluation note Diagnosis Onset Date Family history of autism in sibling acute Family history of congenital heart defect acute acute Supervision of normal first [facility] Work Phone: Evaluation note Note Date & Type Note Facility Evaluation note Diagnosis Onset Date Family history of autism in sibling acute Family history of congenital heart defect acute acute Supervision of normal first acute Family history of autism in sibling acute Family history of congenital heart defect acute acute Supervision of normal first acute Family history of autism in sibling acute Family history of congenital heart defect acute acute Supervision of normal first acute Family history of autism in sibling acute Family history of congenital heart defect acute acute Supervision of normal first acute Family history of autism in sibling acute Family history of congenital heart defect acute acute Supervision of normal first acute [facility] Work Phone: Evaluation note Note Date & Type Note Facility Evaluation note No assessment information availa abisai [facility] Work Phone: Reason for referral (narrative) Note Date & Type Note Facility Reason for referral (narrative) No reason for referral information available [facility] Work Phone: Summary Purpose Family History No Family History Records FoundNo Family History Records FoundNo Family History Records FoundNo Family History Records Found Advance Directives No Advanced Directives Records FoundNo Advanced Directives Records FoundNo Advanced Directives Records FoundNo Advanced Directives Records Found Chief Complaint and Reason for Visit Chief Complaint NOB Reason for Visit Family history of au tism in sibling Family history of congenital heart defect Supervision of normal first Chief Complaint 12 WK OB 16 WK OB 20 WK OB 24 WK OB ONE HOUR DRAW AT 1:20PM 28 WK OB Reason for Visit Family history of au tism in sibling Family history of congenital heart defect Supervision of normal first Family history of autism in sibling Family history of congenital heart defect Supervision of normal first Family history of autism in sibling Family history of congenital heart defect Supervision of normal first Family history of autism in sibling Family history of congenital heart defect Supervision of normal first Family history of autism in sibling Family history of congenital heart defect Supervision of normal first Chief Complaint Admit Date Meera Removal February 08, 2025 2:51p m Additional Source Comments INFORMATION SOURCE (unrecogn ized section and content) DATE CREATED [facility]05[facility] DATE CREATED AUTHOR AUTHOR'S ORGANIZ ATION 09/18/2022 [facility] DATE CREATED AUTHOR AUTHOR'S ORGANIZ ATION 12/13/2023 [facility] DATE CREATED AUTHOR AUTHOR'S ORGANIZ ATION 06/24/2025 [facility] Care Teams (unrecognized sec tion and content) Team Status: Active Member Role Status Dates No Primary Care Physician Primary Care Provider Active Team Status: Inactive Member Role Status Dates No Primary Care Physician Primary Care Provider, Refer ring Provider Active Courtney Gaytan CNM Attending Provider Active Team Status: Inactive Member Role Status Dates No Primary Care Physician Primary Care Provider Active Courtney Gaytan CNM Attending Provider, Referring Pro vider Active Team Status: Inactive Member Role Status Dates No Primary Care Physician Primary Care Provider, Refer ring Provider Active Dr. Loni Penn DO Attending Provider Activ e Team Status: Inactive Member Role Status Dates No Primary Care Physician Primary Care Provider, Refer ring Provider Active Nataliya Zepeda CNM Attending Provider Active Team Status: Inactive Member Role Status Dates No Primary Care Physician Primary Care Provider Active Start: February 08, 2025 End: February 08, 2025 No Primary Care Physician Referring Provider Active Start: February 08, 2025 End: February 08, 2025 Dr. Loni Penn DO Attending Provider Activ e Start: February 08, 2025 End: February 08, 2025 Goals (unrecognized section and content) Goals may be documented in a n alternate sectionGoals may be documented in an alternate sectionGoals may be documented in an alternate section FOR RECORDS PERTAINING TO PATIENTS WHO ARE OR HAVE BEEN ENROLLED IN A CHEMICAL DEPENDENCY/SUBSTANCEABUSE PROGRAM, SOME INFORMATION MAY BE OMITTED. This clinical summary was aggregated from multiple sources. Caution should be exercised in using it in the provision of clinical care. This summary normalizes information from multiple sources, and as a consequence, information in this document may materially change the coding, format and clinical context of patient data. In addition, data may be omitted in some cases. CLINICAL DECISIONS SHOULD BE BASED ON THE PRIMARY CLINICAL RECORDS. [facility] [employer] [facility]. provides no warranty or guarantee of the accuracy or completeness of information in this document.
--- OUTSIDE RECORDS SUMMARY | 2025-06-24 16:08 | XMS RPT_ITS | CCD ---
Author Organization [facility] Care Team Providers Care Dry Roller Name Role Phone NO, PHYSICIAN Primary Care [...] Provider Un available EDWARD Gaytan Attending Provider [phone] Dr. Loni Penn Attending Provider EDWARD Zepeda [...] (3 sources) Penicillins Allergy to substance 08-29-2023 [facility] Comment on above: (1 source) Penicillins Drug allergy (disorder) 06-10-2025 [facility] Medications Current Medications Medication Drug Class(es) Dates Sig (Normalized) Sig (Original) [place] (Nk) (1 source) Start: 02-08-2025 [place] (Nk) A ctive February 08, 2025 12:00am [...] 2024 12:00am May 17, 2024 11:21am levonorgestrel 0.872213 mg/hr intrauterine system (1 source) Progestin, Progestin-containin [...] 2024 12:00am April 26, 2024 12:04am Mv-Mins 59-Smbu-Cmmaf No.1-Dha (Pnv-[place]) 28-1-300 mg capsule (3 sources) Start: 08-19-2023 End: 05-17-2024 Mv-Mins 32-Cylv-Gksum No.1-Dha (Pnv-[place]) 28-1-300 mg capsule Discontinued 1 NMA PO DAILY August 19, 2023 1:00am May 17, 2024 11:21am Start: 08-19-2023 take 1 capsule by mouth once M v-Mins 73-Syzf-Htazk No.1-Dha (Pnv-[place]) 28-1-300 mg capsule Active CAP PO August 19, 2023 1:00am Start: 08-19-2023 take 1 capsule by mouth once M v-Mins 44-Zqhr-Fwmlg No.1-Dha (Pnv-[place]) 28-1-300 mg capsule Active CAP PO August [...] Test Name Value Interpretation Reference Range Facility Managing Consultant Clinical Professor Office Visit Reporton 02-08-2025 Managing Consultant Clinical Professor Office Visit Report [facility] [address], [address] [place] [address] OFFICE VISIT Date of Service: 02/08/25 MR#: [id number] Acct: [id number] Name: JOHN CHARLES Rep #: [id number] : 2000 Provider: Dr. 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 Required: No Is patient in pain?: No Allergies Penicillins Allergy (Intermediate, Verified 02/08/25 15:02) Rash Medications ???Medication ???Instructions ???Recorded ???Confirmed ???Type NK 02/08/25 02/08/25 History Post menopausal: No Patient : No : No [facility] History Status post vaginal delivery History of tonsillectomy [place] teeth extracted Social History adopted: No household members: spouse number of children: 1 current occupational status: employed 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 Date Name GA/Weeks Outcome Route Bth Weight Infant Gen [facility] 04/07/24 Liz 40 live - full term 6lbs 13oz Female [facility] n[facility] [place]de Wm ROS Const ROS [...] normal Coding Level of Care Code Attention Orthopedic Mechanic Diagnoses Encounter for IUD removal Z30.432 Assessment and Plan Assessment and Plan (1) Encounter for IUD removal: Status: Acute Plan: IUD removed recommend PNV call when get pos preg test. Orders: Orders IUD Removal Today Z30.432 - Encounter for removal of intrauterine contraceptive device 02/08/25 1520 Date Loni Ayala Signature: Date (if applicable) CC: Normal [facility] Absolute lymphocyte countOrd ered By: Courtney Gaytan on 01-16-2024 Lymphocytes Auto (Unsp spec) [#/Vol] 1.45 10*3/uL 0.83-4.51 [facility] Automated lymphocyte count a s percentage of total leukocytesOrdered By: Courtney Gaytan on 01-16-2024 Lymphocytes/100 WBC Auto (Unsp spec) 13.0 % 19-41 [facility] Basophil percentageOrdered B y: Courtney Gaytan on 01-16-2024 Basophils/100 WBC (Bld) 0.4 % 0-1 [facility] Eosinophils/100 WBC (Bld) 2.3 % 0-5 [facility] Hemoglobin (Bld) [Mass/Vol] 11.1 g/dL 12.0-15.0 [facility] Monocytes/100 WBC (Bld) 6.3 % 0-10 [facility] Neutrophils (Bld) [#/Vol] 8.6 10*3/uL 2.0-7.7 [facility] Neutrophils/100 WBC (Bld) 77.1 % 47-70 [facility] WBC (Bld) [#/Vol] 11.2 10*3/uL 4.4-11.0 [facility] Determination of erythrocyte mean corpuscular volume (MCV)Ordered By: Courtney Gaytan on 01-16-2024 MCV (RBC) [Entitic vol] 94.0 fL 81-99 [facility] Erythrocyte distribution wid th ratioOrdered By: Courtney Gaytan on 01-16-2024 Erythrocyte distribution width (RBC) [Ratio] 13.1 % 11.6-14.6 [facility] Erythrocyte distribution wid th standard deviationOrdered By: Courtney Gaytan on 01-16-2024 Erythrocyte distribution width (RBC) [Entitic vol] 44.6 fL 35.1-43.9 [facility] Gestational diabetes screen 1-hour screen with 50g oral glucose loadOrdered By: Courtney Gaytan on 01-16-2024 Glucose 1 Hr post 50 g glucose PO [Mass/Vol] 76 mg/dL 70-140 [facility] Hematocrit Auto (Bld) [Volum e fraction]Ordered By: Courtney Gaytan on 01-16-2024 Hematocrit (Bld) [Volume fraction] 33.0 % 37-47 [facility] Immature granulocytes/100 WB C Auto (Bld)Ordered By: Courtney Gaytan on 01-16-2024 Immature granulocytes/100 WBC (Bld) 0.900 % 0.0-0.9 [facility] Comment on above: IG% - Immature Granu locytes (promyelocytes, myelocytes and metamyelocytes) > 1% indicates that a LEFT SHIFT is Present. Laboratory - Hematology and Cell countsOrdered By: Courtney Gaytan on 01-16-2024 MCH (RBC) [Entitic mass] 31.6 pg 27.0-32.0 [facility] MCHC (RBC) [Mass/Vol] 33.6 g/dL 32-36 [facility] Nucleated RBC/100 WBC (Bld) [Ratio] 0 % 0-5 [facility] Platelet mean volume (Bld) [Entitic vol] 11.0 fL 6.2-12.0 [facility] Platelets (Bld) [#/Vol] 218 10*3/uL 150-450 [facility] RBC Auto (Bld) [#/Vol]Ordere d By: Courtney Gaytan on 01-16-2024 RBC (Bld) [#/Vol] 3.51 10*6/uL 4.2-5.4 [facility] Laboratory - Chemistry and C hemistry - challengeon 12-19-2023 Glucose Ql (U) Negative [facility] Laboratory - Urinalysison Protein Ql (U) Negative [facility] Laboratory - Chemistry and C hemistry - challengeon 11-21-2023 Glucose Ql (U) Negative [facility] Laboratory - Urinalysison Protein Ql (U) Negative [facility] Laboratory - Chemistry and C hemistry - challengeon 10-24-2023 Glucose Ql (U) Negative [facility] Laboratory - Urinalysison Protein Ql (U) Negative [facility] Laboratory - Chemistry and C hemistry - challengeon 09-26-2023 Glucose Ql (U) Negative [facility] Laboratory - Urinalysison Protein Ql (U) Negative [facility] Chlamydia trachomatis rRNA d etection by probe and target amplification methodOrdered By: Courtney Gaytan on 08-29-2023 C. trachomatis rRNA VALENCIA+probe Ql (Unsp spec) Negative Negative [facility] Culture, urineOrdered By: Deshawn Gaytan on 08-29-2023 Bacteria identified Cx Nom (U) Culture exhibits no growth. [facility] Laboratory - Microbiology an d Antimicrobial susceptibilityOrdered By: Courtney Gaytan on 08-29-2023 N. gonorrhoeae DNA VALENCIA+probe Ql (Unsp spec) Negative Negative [facility] Comment on above: Performed at: =[facility] [address] [place] [id number] Director: Ann Bunch MD, Phone: [phone] THIN PREP with HPV REFLEX C Uon 09-17-2022 . Comment Normal [facility] Comment on above: Result Comment: The HPV DNA reflex criteria were not met with this specimen result therefore, no HPV testing was performed. . Performed at: [facility] Performed By: #### T PHRA #### Performed for [place] [id number] . Normal [facility] Comment on above: Result Comment: Perf ormed at: [facility] Performed By: #### T PHRA #### Performed for [place] [address] Web Master Cyto stain Nom (Cvx/Vag) [ID] Comment Normal [facility] Comment on above: Result Comment: Lebron Rosa, Parcel Post Order Clerk (ASCP) Performed at: [facility] Performed By: #### T PHRA #### Performed for [place] [address] Cytology report Cyto stain Doc (Cvx/Vag) Comment Normal [facility] Comment on above: Result Comment: NEGA TIVE FOR INTRAEPITHELIAL LESION OR MALIGNANCY. Performed at: [facility] Performed By: #### T PHRA #### Performed for [place] [address] Cytology report Cyto stain.thin prep Doc (Cvx/Vag) Comment Normal [facility] Comment on above: Result Comment: This liquid based ThinPrep(R) pap test was screened with the use of an image guided system. Performed at: [facility] Performed By: #### T PHRA #### Performed for [place] [address] Note: Comment Normal [facility] Comment on above: Result Comment: The Pap [...] By: #### T PHRA #### Performed for [facility] [address], [place] [address] Statement of adequacy Cyto stain (Cvx/Vag) [Interp] Comment Normal [facility] Comment on above: Result Comment: Sati sfactory for evaluation. No endocervical component is identified. Performed at: [facility] Performed By: #### T PHRA #### Performed for [address] [address] Vital Signs Date Time Vital Sign Value Performing Clinician Rinku betancourt 02-08-2025 15:05-0400 Body height 170.18 cm No Primary Care Physician [facility] 02-08-2025 15:03-0400 Body mass index (BMI) [Ratio] 28.7 kg/m2 No Primary Care Physician [facility] 02-08-2025 15:03-0400 Body weight 83.12 kg No Primary Care Physician [facility] 02-08-2025 15:03-0400 Diastolic blood pressure 85 mm[Hg] No Primary Care Physician [facility] 02-08-2025 15:03-0400 Systolic blood pressure 126 mm[Hg] No Primary Care Physician [facility] 01-16-2024 13:58-0400 Body height 170.18 cm No Primary Care Physician [facility] 01-16-2024 13:58-0400 Body mass index (BMI) [Ratio] 29.9 kg/m2 No Primary Care Physician [facility] 01-16-2024 13:58-0400 Body weight 86.8 kg No Primary Care Physician [facility] 01-16-2024 13:58-0400 Diastolic blood pressure 77 mm[Hg] No Primary Care Physician [facility] 01-16-2024 13:58-0400 Systolic blood pressure 123 mm[Hg] No Primary Care Physician [facility] 12-19-2023 13:15-0400 Body mass index (BMI) [Ratio] 29.9 kg/m2 No Primary Care Physician [facility] 12-19-2023 13:15-0400 Body weight 86.8 kg No Primary Care Physician [facility] 12-19-2023 13:15-0400 Diastolic blood pressure 73 mm[Hg] No Primary Care Physician [facility] 12-19-2023 13:15-0400 Systolic blood pressure 115 mm[Hg] No Primary Care Physician [facility] 11-21-2023 13:06-0500 Body mass index (BMI) [Ratio] 29.2 kg/m2 No Primary Care Physician [facility] 11-21-2023 13:06-0500 Body weight 84.87 kg No Primary Care Physician [facility] 11-21-2023 13:06-0500 Diastolic blood pressure 80 mm[Hg] No Primary Care Physician [facility] 11-21-2023 13:06-0500 Systolic blood pressure 118 mm[Hg] No Primary Care Physician [facility] 10-24-2023 11:43-0500 Body mass index (BMI) [Ratio] 28.5 kg/m2 No Primary Care Physician [facility] 10-24-2023 11:43-0500 Body weight 82.66 kg No Primary Care Physician [facility] 10-24-2023 11:43-0500 Diastolic blood pressure 82 mm[Hg] No Primary Care Physician [facility] 10-24-2023 11:43-0500 Systolic blood pressure 115 mm[Hg] No Primary Care Physician [facility] 09-26-2023 13:08-0500 Body mass index (BMI) [Ratio] 28.6 kg/m2 No Primary Care Physician [facility] 09-26-2023 13:08-0500 Body weight 83.06 kg No Primary Care Physician [facility] 09-26-2023 13:08-0500 Diastolic blood pressure 75 mm[Hg] No Primary Care Physician [facility] 09-26-2023 13:08-0500 Systolic blood pressure 111 mm[Hg] No Primary Care Physician [facility] 08-29-2023 11:31-0500 Body height 170.18 cm No Primary Care Physician [facility] 08-29-2023 11:31-0500 Body mass index (BMI) [Ratio] 29.3 kg/m2 No Primary Care Physician [facility] 08-29-2023 11:31-0500 Body weight 84.93 kg No Primary Care Physician [facility] 08-29-2023 11:31-0500 Diastolic blood pressure 71 mm[Hg] No Primary Care Physician [facility] 08-29-2023 11:31-0500 Systolic blood pressure 105 mm[Hg] No Primary Care Physician [facility] Encounters Encounter Date Encounter Type Care Provider Facility Start: 06-24-2025 ambulatory No Primary Car e Physician Facility:[facility] Start: 02-08-2025 End: 02-08-[address] Loni Penn DO -[facility] Work Phone: Start: 02-08-2025 End: 02-08-2025 ambulatory No Primary Care Physician [facility] Work Phone: Start: 01-16-2024 End: 01-16-2024 ambulatory No Primary Care Physician [facility] Work Phone: Start: 01-16-2024 End: 01-16-2024 Patient encounter procedure No Primary Care Physician [facility] Work Phone: Start: 12-19-2023 End: 12-19-2023 Patient encounter procedure No Primary Care Physician [facility] Work Phone: Start: 12-12-2023 End: 12-12-2023 ambulatory LONI DOTY [facility] Start: 11-21-2023 End: 11-21-2023 Patient encounter procedure No Primary Care Physician [facility] Work Phone: Start: 11-12-2023 End: 11-12-2023 ambulatory COURTNEY GAYTAN [facility] Start: 10-24-2023 End: 10-24-2023 Patient encounter procedure No Primary Care Physician [facility] Work Phone: Start: 09-26-2023 End: 09-26-2023 Patient encounter procedure No Primary Care Physician [facility] Work Phone: Start: 08-29-2023 End: 08-29-2023 ambulatory No Primary Care Physician [facility] Work Phone: Start: 08-29-2023 End: 08-29-2023 Patient encounter procedure No Primary Care Physician [facility] Work Phone: Start: 08-29-2023 End: 08-29-2023 Patient encounter procedure No Primary Care Physician [facility] Work Phone: Start: 09-09-2022 Encounter for gynecological examination (general) (routine) without abnormal findings NHI M SLIME DIETRICH [facility] Start: 09-05-2022 End: 09-06-2022 ambulatory NONE NONE Facility:[facility] Start: 09-05-2022 End: 09-06-2022 Encounter for gynecological examination (general) (routine) without abnormal findings NONE NONE Facility:[facility] Start: 10-31-2020 End: 11-04-2020 Patient encounter procedure PHYSICIAN NO [facility] Procedures Date Procedure Procedure Detail Performing Clinician Start: 08-29-2023 Urine culture No Primar y Care Physician Plan of Treatment Date Care Activity Detail Author CBC W Auto Differential panel - Blood [facility] Hepatitis B surface antigen measurement [facility] Hepatitis C antibody measurement [facility] HIV 1+2 Ab+HIV1 p24 Ag [Presence] in Serum or Plasma by Immunoassay [facility] Rubella IgG measurement [facility] Treponema sp Ab [Presence] in Serum [facility] Immunizations Immunization Date Immunization Notes Care Provider Fa cility 02-13-2024 tetanus toxoid, redu charles diphtheria toxoid, and acellular pertussis vaccine, adsorbed No Primary Care Physician [facility] Payers Date Payer Category Payer Self-pay 2024 Unknown [id number] 2000 Unknown [id number] [id number] 2000 Unknown [id number] 2000 Unknown [id number] Unknown [id number] Unknown [id number] [id number] Social History Date Type Detail Facility Start: 08-29-2023 End: 12-19-2023 Tobacco smoking status MNIS Unknown if ever smoked [facility] Start: 2000 Sex Assigned At Female [facility] Start: 05-17-2024 Tobacco smoking stat us MNIS Never smoked tobacco (finding) [facility] Evaluation note Note Date & Type Note Facility Evaluation note Diagnosis Onset Date Family history of autism in sibling acute Family history of congenital heart defect acute acute Supervision of normal first [facility] Work Phone: Evaluation note Note Date [...] acute acute Supervision of normal first acute [facility] Work Phone: Evaluation note Note Date & Type Note Facility Evaluation note No assessment information availa abisai [facility] Work Phone: Reason for referral (narrative) Note Date & Type Note Facility Reason for referral (narrative) No reason for referral information available [facility] Work Phone: Summary Purpose Family History [...] and content) DATE CREATED AUTHOR [facility]05/2020 [facility] DATE CREATED AUTHOR AUTHOR'S ORGANIZ ATION 09/18/2022 [facility] DATE CREATED AUTHOR AUTHOR'S ORGANIZ ATION 12/13/2023 [facility] DATE CREATED AUTHOR AUTHOR'S ORGANIZ ATION 06/24/2025 [facility] Care Teams (unrecognized sec tion and content) [...] BE BASED ON THE PRIMARY CLINICAL RECORDS. [facility] [employer] [facility]. provides no warranty or guarantee of the accuracy or completeness of information in this document.
[2025-06-27 20:08] LABS: Chlamydia By Nucleic Acid AMP Negative (Negative); Gonococcus By Nucleic Acid AMP Negative (Negative)
== END | disposition home or self-care (01) ==
LOC: LABSPEC 15:09
PROVIDERS: Visit Provider Obstetrics & Gynecology
DX: Z34.90 Encounter for supervision of normal pregnancy, unspecified, unspecified trimester (principal)
CPT/HCPCS: 87086; 87088; 87491; 87591

== ENCOUNTER → 2025-06-29 | Outpatient (CLI) | payer BC, SELFPAY ==
[2025-06-29 12:29] LABS: Hematocrit 39.0 % (37-47); Hemoglobin 13.4 g/dL (12.0-15.0); Immature Granulocytes Count 0.040 X10^3/uL (0.0-0.0); Mean Corp Hgb Conc 34.4 g/dL (32-36); Mean Corpuscular Volume 90.7 fL (81-99); Mean Platelet Vol. 11.6 fl (6.2-12.0); NRBC Flagged by Analyzer 0 % (0-5); Platelet Count 225 K/mm3 (150-450); RBC Distribution Width CV 12.1 % (11.6-14.6); RBC Distribution Width SD 40.0 fl (35.1-43.9); Red Blood Count 4.30 M/mm3 (4.2-5.4); White Blood Count 8.3 K/mm3 (4.4-11.0)
[2025-06-29 13:21] LABS: HIV Nonreactive (Nonreactive); Hepatitis B Surface Antigen Nonreactive (Nonreactive); Hepatitis C Antibody Nonreactive (Nonreactive); Syphilis Antibodies Nonreactive (Nonreactive)
== END | disposition home or self-care (01) ==
PROVIDERS: Visit Provider Obstetrics & Gynecology
DX: Z34.90 Encounter for supervision of normal pregnancy, unspecified, unspecified trimester (principal)
CPT/HCPCS: 36415; 85025; 86703; 86762; 86780; 86803; 86850; 86900; 86901; 87086; 87088; 87340